=== PATIENT | male | born 1935 ===

== ENCOUNTER 2017-12-28 10:35 | Emergency (ER) | payer MEDICARE, BC, SELFPAY ==
[2017-12-28 10:46] VITALS: BP 133/108; PULSE 80; RESP 16; TEMP 36.9; O2SAT 98
--- NOTE | 2017-12-28 10:51 | ED.GENADUL ---
Disposition Clinical Impression: Cerumen impaction Disposition: HOME Condition: Fair Instructions: Cerumen Impaction (ED) Additional Instructions: Keep ear clean and dry. Monitor for signs of infection. Care for hearing aids and ears as previously advised. If you develop signs of infection including discharge, pain, fevers/chills or other new/worsening symptoms please begin ear drops. Prescriptions: Ciprofloxacin HCl/Dexameth [Ciprodex Otic Suspension] 5 drp OT TID #1 btl Referrals: Primary Care Provider [Outside] Medical Decision Making - Medical Decision Making Patient presents today with chief complaint of diminished hearing and fluid in his left ear. On exam, patient has cerumen impaction left ear. Cerumen does appear quite soft. I am questioning if this is secondary to him using these drops recently. I have asked nursing staff to try to flush this out. I did advise I do not see evidence of otitis externa at this point but will reevaluate after the ear has been flushed. There is been flushed by nursing staff. I did reevaluate and canal is now clear of cerumen impaction. He reports that he is feeling much improved. Hearing is restored. No erythema or swelling of canal. At this point, I do not feel that further intervention is warranted. They did request refill in his antibiotic drops as he frequently has issues with otitis externa. He does have his bottle with him and is allowed one further refill on current prescription. However, as they are currently traveling are unable to have this refill obtained from their home pharmacy. I am in agreement with refilling prescription but advised on symptoms of when to begin. They plan to be traveling for the next week and then returning home with he may follow-up with his primary care physician as well as his home ENT. We discussed new/worsening symptoms when to start medication as well as be reevaluated. All of their questions and concerns were addressed in agreement with this plan. History of Present Illness - General Chief complaint: EarProblem Stated complaint: EAR PROBLEM Time Seen by Provider: 12/28/17 10:50 Source: patient, RN notes reviewed Mode of arrival: ambulatory Limitations: no limitations - History of Present Illness Initial comments: Patient is an 82 year old male, accompanied by , with chief complaint of left ear discomfort. Reports it has been present for the past 3 days. States it feels like their is fluid in there. Reports that hearing has been diminished on afflicted side. No fevers/chills. Has been using old prescription he has for previous otitis externa infection without success. Patient wears bilateral hearing aids. Reports he has continued to use use despite this the ear issue. Reports that he is seen by ENT frequently. Reports that he has to have his ears vacuumed out biannually. Denies pain in the ears. Has not noted discharge. - Related Data Cholecalciferol (Vitamin D3) [Vitamin D3] 1 tab PO DAILY 12/28/17 Ciprofloxacin HCl/Dexameth [Ciprodex Otic Suspension] 5 drp OT TID #1 btl 12/28/17 Cyanocobalamin (Vitamin B-12) [Vitamin B-12] 1 tab PO DAILY 12/28/17 Hydrochlorothiazide 25 mg PO DAILY 12/28/17 Loperamide [Imodium] 1 cap PO BID 12/28/17 Losartan [Cozaar] 25 mg PO DAILY 12/28/17 Magnesium 250 mg PO DAILY 12/28/17 Mesalamine [Lialda] 400 mg PO BID 12/28/17 MetFORMIN [Glucophage] 1,000 mg PO DAILY 12/28/17 Omeprazole 20 mg PO DAILY 12/28/17 Saw [place] 1 cap PO DAILY 12/28/17 Warfarin [Coumadin] 7.5 mg PO .3 DAYS 12/28/17 Allergies Allergy/AdvReac Type Severity Reaction Status Date / Time morphine Allergy Severe Itching Unverified 12/28/17 10:52 Review of Systems Constitutional: no symptoms reported. denies: chills, fever Eyes: denies: eye pain, eye discharge ENT: as per HPI Respiratory: no symptoms reported. denies: cough, shortness of breath Cardiovascular: denies: chest pain Skin: denies: rash, lesions Neurological: denies: headache Past Medical History - Past Medical History Medical history: cancer (colon), diabetes, GERD, hypertension atrial flutter, IBS Surgical history: non-contributory General Exam - General Limitations: no limitations General appearance: alert, in no apparent distress - Head Head exam: Present: atraumatic - Eye Eye exam: Present: normal apperance - ENT ENT exam: Present: normal orophraynx, mucous membranes moist. Absent: normal exam, TM's normal bilaterally (Unable to visualize left TM secondary to cerumen impaction. Cerumen appears soft. No swelling of canal. Patient does have dry skin in canals bilaterally. ) - Neck Neck exam: Present: normal inspection. Absent: tenderness, lymphadenopathy - Respiratory Respiratory exam: Present: normal lung sounds bilaterally. Absent: respiratory distress - Cardiovascular Cardiovascular Exam: Present: regular rate, normal rhythm, normal heart sounds - Neurological Exam Neurological exam: Present: alert, normal gait - Psychiatric Psychiatric exam: Present: normal affect, normal mood - Skin Skin exam: Present: warm, dry, normal color
== END 2017-12-28 12:03 | disposition home or self-care (01) ==
PROVIDERS: Emergency Provider Student in an Organized Health Care Education/Training Program
DX: H61.22 Impacted cerumen, left ear (principal); I10 Essential (primary) hypertension; E11.9 Type 2 diabetes mellitus without complications; Z79.84 Long term (current) use of oral hypoglycemic drugs
CPT/HCPCS: 69209; 99283 ×2